=== PATIENT | female | born 1980 | race Caucasian/White ===

== ENCOUNTER 2021-07-17 11:23 | Emergency (ER) | payer BC, SELFPAY ==
--- NOTE | ~2021-07-17 | XR_ITS ---
XR lumbar spine 2-3V DATE: 07/17/2021 14:46 INDICATION: Low back pain after bending. No injury. TECHNIQUE: AP, lateral, coned lateral lumbosacral views COMPARISON: None FINDINGS: Surgical clips, right upper quadrant, consistent with cholecystectomy. Normal alignment of the lumbar spine. No fracture or bone destruction or spondylolisthesis. The lumba r pedicles are intact. Lumbar and lumbosacral interspaces appear well preserved. The sacroiliac joint s appear normal. IMPRESSION: Negative lumbar spine Status post cholecystectomy Reviewed, dictated and finalized at location A. [facility]
[2021-07-17 11:25] VITALS: BP 168/105; PULSE 78; RESP 16; TEMP 35.9; O2SAT 100
--- NOTE | 2021-07-17 13:30 | PC.NURSE ---
Awaiting to be seen by ERP.
--- NOTE | 2021-07-17 14:06 | ED.GENADULT ---
HPI - General Adult General Chief complaint: Back Pain/Injury Stated complaint: back pain Time Seen by Provider: 07/17/21 12:49 Source: patient Mode of arrival: ambulatory Limitations: no limitations History of Present Illness HPI narrative: Patient presents for evaluation of low back pain for the last 2 days. She indicates she had sudden onset of pain in the low back when she bent forward. Pain has been constant since that time. She indicates her pain is sharp, rated 10/10 in severity and with radiation down BLE. No saddle anesthesia, bladder/bowel incontinence. She has been taking tylenol and ibuprofen with minimal improvement in her symptoms thereafter. Pain is worse with movement. She states she has been in bed for the last day 2/2 pain. No additional complaints or concerns. Related Data Home Medications Medication Instructions Recorded Confirmed fluoxetine 40 mg 07/17/21 phentermine 37.5 mg 07/17/21 Allergies Allergy/AdvReac Type Severity Reaction Status Date / Time morphine Allergy Mild Rash Verified 07/17/21 11:33 Penicillins Allergy Mild Nausea and Verified 07/17/21 11:33 Vomiting tetanus toxoid, adsorbed Allergy Mild Unknown Verified 07/17/21 11:33 Sulfa (Sulfonamide AdvReac Nausea and Verified 07/17/21 11:33 Antibiotics) Vomiting Review of Systems Review of Systems: CONSTITUTIONAL: Denies fever, chills, or sweats. EYES: Denies visual changes, redness, or discharge. ENT: Denies rhinorrhea, congestion, sore throat, or otalgia. CARDIOVASCULAR: Denies chest pain, palpitations, or edema. RESPIRATORY: Denies cough or dyspnea. GASTROINTESTINAL: Denies abdominal pain, nausea, vomiting, or diarrhea. GENITOURINARY: Denies dysuria or hematuria. SKIN: Denies rash or itching. MUSCULOSKELETAL: Reports low back pain with radiation down BLE NEUROLOGIC: Denies headache, numbness, dizziness, or weakness. PSYCHIATRIC: Denies anxiety or depression. [facility] Past Medical History Medical History (Updated 07/17/21 @ 16:22 by Connor Flower, ANDRESSA, KARINA) History of pancreatitis Surgical History Surgical History History of cholecystectomy Family History Family History Mother Family history of malignant neoplasm of skin Social History Social History Smoking packs per day: 0.25 Smoking cigarettes per day: 5.0 Smoking status: Current every day smoker Alcohol intake: current Alcohol use details: social Substance use: never Living arrangements: with family Gender identity (if verbalized by the patient): Female Sexual Orientation (if Verbalized by the Patient): Straight or Heterosexual Spiritual care concerns: No Exam Narrative: GENERAL: Well-appearing, well-nourished. Visibly uncomfortable but in no apparent distress. HEAD: Normocephalic, atraumatic. EYES: PERRLA and EOMI. ENT: Nares clear, no rhinorrhea or epistaxis. Mucous membranes moist. Oropharynx without tonsillar hypertrophy exudate or other lesions. Bilateral TMs pearly be nonbulging NECK: Supple. No adenopathy or masses. No carotid bruits or JVD CHEST: Clear to auscultation. No respiratory distress. No wheezes rales or rhonchi HEART: Regular rate and rhythm. No murmur heard. Normal peripheral pulses. ABDOMEN: Soft, nontender, nondistended, normal active bowel sounds. BACK:Tenderness in midline and paraspinous muscles bilaterally of lumbar spine and over right SI joint EXTREMITIES: Normal range of motion. No edema. Negative straight leg raise bilaterally SKIN: Warm, dry, no rash. NEURO: No focal deficits. Alert and oriented x3. PSYCH: Normal mood and affect. Course Course Emergency Course: This is a 41-year-old female who present with complaints of low back pain. X-ray was negative for fracture. She was given [place] in the emergency departm
[2021-07-17] MEDS: HYDROcodone/acetaminophen (*CRX) 5-325 MG TABLET 2 TAB PO (14:09)
[2021-07-17 16:42] VITALS: BP 150/84; PULSE 76; RESP 20; TEMP 36.9; O2SAT 98
== END 2021-07-17 16:44 | disposition home or self-care (01) ==
PROVIDERS: Emergency Provider Nurse Practitioner
DX: S39.012A Strain of muscle, fascia and tendon of lower back, initial encounter (principal); F17.210 Nicotine dependence, cigarettes, uncomplicated; X50.9XXA Other and unspecified overexertion or strenuous movements or postures, initial encounter
CPT/HCPCS: 72100; 81025; 99283; A9270